=== PATIENT | male | born 1955 | race Caucasian/White ===

== ENCOUNTER 2017-07-26 04:07 | Inpatient (IN) | payer OTHER ==
[~2017-07-26] VITALS: Ht 165.1 cm; Wt 77.1 kg
--- NOTE | ~2017-07-26 | CR72 ---
[facility] A Service of [facility] & [facility] RADIOLOGY TEXT RESULTS PATIENT: JUAN DIEGO CLARK LOCATION: [facility] 228-01 : 53 UNIT #: [id number] AGE: [address]: Rajani Mathew MD SEX: M ORDER DR: [id number] [facility] [address]. [place], [place] [address] [id number] MR#: [id number] Acc #: [id number] NAME: JUAN DIEGO CLARK : 1955 SEX: M STUDY DATE/TIME: 07/26/2017 5:27 [facility] [address] STUDY DESCRIPTION: CR Chest Single View Portable Attending Physician: Rajani Mathew M.D. Ordering Physician: Ziyad Jeff Aprn Primary Care Physician: Primitivo RooneyAWilfredo MEDICAL IMAGING REPORT This report is preliminary unless electronic signature is present EXAM Portable chest. INDICATIONS Fever, shortness of air today. PROCEDURE Frontal view chest. COMPARISON 01/03/2017. FINDINGS Heart size is within normal limits. There is ill-defined opacity in right upper lobe. No pleural fluid or pneumothorax. IMPRESSION Ill-defined opacity in the right upper lobe, keeping with pneumonia. Dictated by... Chucky Lazo M.D. THIS IS AN ELECTRONICALLY VERIFIED REPORT Chucky Lazo M.D. at 07/30/2017 8:57 AM EED/gz TD: 07/26/2017 08:50 JOB #: [id number] MEDICAL IMAGING REPORT Page 1 of 1 COPY
--- NOTE | ~2017-07-26 | HP ---
Unit #: [id number] #: [id number] Patient: JUAN DIEGO CLARK [id number] [address] [place], [place] [address] [id number] I MR#: [id number] NAME: JUAN DIEGO CLARK ROOM: 228 Age: 61 Sex: M Admission Date: 07/26/2017 : 1955 Attending Physician: Rajani Mathew M.D. Primary Care Physician: Garrett Rooney HISTORY AND PHYSICAL CHIEF COMPLAINT Weakness and cough and fever. HISTORY OF PRESENT ILLNESS A 61 year old with history of rheumatoid arthritis admitted because of fever and weakness. According to him it started one week prior to the admission. He had generalized weakness with associated fever. No nausea, no vomiting, has cough and mild shortness of breath, no abdominal pain, no diarrhea, no skin rash, no weakness, numbness, tingling, no dizziness, no syncope. PAST MEDICAL HISTORY History of rheumatoid arthritis. PAST SURGICAL HISTORY 1. Appendectomy. 2. Vasectomy. 3. Carpal tunnel surgery on his left wrist. SOCIAL HISTORY Smokes one pack of cigarettes per day, occasional alcohol, no drugs. FAMILY HISTORY Negative for any coronary artery disease. ALLERGIES None. HOME MEDICATIONS 1. Humira Pen 40 mg subcu every other week. 2. Methotrexate 2.5 mg p.o. weekly. REVIEW OF SYSTEMS No headache. No visual changes. No leg swelling. No skin rash. Reviewed 12-point system with him which are negative except as in HPI. PHYSICAL EXAMINATION VITAL SIGNS: Temperature 102.6. Pulse 103. Respiration 15. Blood pressure 119/67. GENERAL EXAMINATION: 61 year old lying on bed, alert, oriented x3. HEENT: Dry mucosa present. Pupils equally react to light and accommodation. LUNGS: Clear to auscultation. No crackles. No rhonchi. HEART: S1, S2 heard. No murmurs. Unit #: [id number] #: [id number] Patient: JUAN DIEGO CLARK ABDOMEN: Soft, nontender, bowel sounds are present. EXTREMITIES: No pedal edema. SKIN: No rash. NEUROLOGICAL: No focal neurological deficits. DIAGNOSTIC STUDIES LABORATORY: Lactic acid 1.0, second lactic acid 1.5. Troponins negative. Sodium 132, potassium 3.6, creatinine 1.3, albumin 3.4, WBC 14.9, hemoglobin 13.3, platelets 180. IMAGING: Chest x-ray shows right upper lobe opacity. ASSESSMENT AND PLAN 61 year old admitted because of fever and weakness. 1. Septic shock with severe sepsis from pneumonia right upper lobe: Patient was started on IV fluids and blood cultures drawn. CBC and lactic acid drawn. Antibiotics has been started. Continue with antibiotics and wait for blood cultures. Currently patient capillary refill is greater than 2 seconds. He does not have any cyanosis. Peripheral extremity shows warm and dry. His lungs are clear, no crackles. Heart S1, S2 heard, regular rhythm, no murmurs. 2. Rheumatoid arthritis: Hold off on his methotrexate and Humira. 3. GI prophylaxis with Protonix 40 p.o. daily. 4. DVT prophylaxis with Lovenox 40 subcu daily. Dictated by Amanda Pacheco/viki TD: 07/26/2017 22:53 JOB #: [id number] HISTORY AND PHYSICAL Page 1 of 1 X Rajani Mathew MD HISTORY AND PHYSICAL
--- NOTE | ~2017-07-26 | DS ---
Unit #: [id number] #: [id number] Patient: JUAN DIEGO CLARK [id number] [facility]. [place], [place] [address] [id number] I MR#: [id number] NAME: JUAN DIEGO CLARK ROOM: 228 Age: 61 Sex: M Admission Date: 07/26/2017 : 1955 Discharge Date: 07/27/2017 Attending Physician: Rajani Mathew M.D. Primary Care Physician: Primitivo RooneyAWilfredo DISCHARGE SUMMARY FINAL DIAGNOSIS Pneumonia and possible sepsis. SECONDARY DIAGNOSIS Rheumatoid arthritis on Enbrel. HOSPITAL COURSE Jhpqt-rvbie-smgn-old gentleman who basically is on Humira and methotrexate for rheumatoid arthritis presents with fever. Chest x-ray showed a right upper lobe opacity. He was treated for right upper lobe pneumonia. He had a temperature of 102.6 on admission, and he has been afebrile for the last twenty-four hours. He is not hypoxic at this time, and he has been evaluated and deemed stable for discharge. He was started on IV Rocephin and Zithromax on admission. MEDICATIONS ON DISCHARGE Include: 1. Methotrexate and Humira per home dose 2. Zithromax 500 mg p.o. daily for five days 3. Ceftin 250 mg p.o. b.i.d. for seven days He is scheduled to follow up with primary care physician in the next 3 to 5 days. Time spent coordinating discharge was about twenty-six minutes. Dictated by... Amanda Sagastume/dany TD: 07/28/2017 08:31 JOB #: [id number] Unit #: [id number] #: [id number] Patient: JUAN DIEGO CLARK DISCHARGE SUMMARY Page 1 of 1 X Anson Branham MD X DISCHARGE SUMMARY
--- NOTE | ~2017-07-26 | EKG ---
PATIENT: JUAN DIEGO CLARK UNIT #: [id number] Ventricular Rate: 90 BPM Atrial Rate: 90 BPM P-R Interval: 150 ms QRS Duration: 82 ms Q-T Interval: 340 ms QTC Calculation(Bezet): 415 ms P [place]: 63 degrees Calculated R [place]: 41 degrees Calculated T [place]: 47 degrees Diagnosis Line: Normal sinus rhythm Diagnosis Line: Normal ECG Diagnosis Line: No previous ECGs available Diagnosis Line: Confirmed by ANEESH BINGHAM MD ([id number]) on Diagnosis Line: 07/26/2017 10:54:15 AM INTERPRETING MD: ZACHERY WIGGINS
[~2017-07-26 04:07] MED LIST: FOSAMAX PO; WELLBUTRIN PO; [UNRECOGNIZED DRUG - OTHER] PO
[2017-07-26 05:25] LABS: BASOPHIL# 0.1 X10e3 (0-0.3); BASOPHIL% 0.4 % (0-2.5); HEMOGLOBIN 13.3 gm/dL (13.0-16.0); LYMPHOCYTE# 0.8 X10e3 (1.0-3.5); LYMPHOCYTE% 5.7 % (17.0-45.0); MEAN CORPUSCULAR HEMOGLOBIN 31.1 PG (28-34); MEAN CORPUSCULAR HGB CONC 33.4 g/dL (30-36); MEAN PLATELET VOLUME 9.2 FL (6.5-11.5); MONOCYTE# 1.8 X10e3 (0-1.0); MONOCYTE% 12.3 % (3.0-12.0); NEUTROPHIL# 12.1 X10e3 (1.5-7.1); NEUTROPHIL% 81.6 % (40-75); PLATELET COUNT 180 X10e3 (140-420); RED CELL DISTRIBUTION WIDTH 13.9 % (11.0-15.5); WHITE BLOOD COUNT 14.9 X10e3 (4.0-10.5)
[2017-07-26 05:36] LABS: DIFF IND NO
[2017-07-26 06:09] LABS: ALBUMIN SERUM 3.4 g/dL (3.5-5.0); BILIRUBIN, DIRECT 0.4 mg/dL (0.0-0.2); BILIRUBIN,TOTAL 1.4 mg/dL (0.2-2.0); BUN/CREATININE RATIO 12.3; CREATININE SERUM 1.3 mg/dL (0.6-1.4); GLOM FILT RATE Estimated 58.1 mL/min (>60); POTASSIUM 3.6 mmol/L (3.5-5.1); PROTEIN TOTAL SERUM 6.5 g/dL (6.0-8.3)
[2017-07-26 06:27] LABS: POC - CKMB <1.0 ng/mL (0.0-7.9); POC - TROPONIN <0.05 ng/mL (<=0.05)
[2017-07-26] MEDS ORDERED: METHOTREXATE2.5 MG PO (10:20)
[2017-07-26] MEDS ORDERED: HUMIRA PEN40 MG/0.8 SUBQ (10:20)
[2017-07-27 06:26] LABS: HEMATOCRIT 38.3 % (38.0-50.0); MEAN CELL VOLUME 94.2 FL (83-96); MEAN PLATELET VOLUME 8.7 FL (6.5-11.5); RED BLOOD COUNT 4.07 X10e (3.90-5.60); RED CELL DISTRIBUTION WIDTH 14.1 % (11.0-15.5)
[2017-07-27 07:00] LABS: ALBUMIN SERUM 2.7 g/dL (3.5-5.0); BILIRUBIN,TOTAL 0.8 mg/dL (0.2-2.0); CALCIUM SERUM 7.9 mg/dL (8.4-10.2); CREATININE SERUM 1.1 mg/dL (0.6-1.4); GLOM FILT RATE Estimated 71.1 mL/min (>60); POTASSIUM 4.2 mmol/L (3.5-5.1); PROTEIN TOTAL SERUM 5.6 g/dL (6.0-8.3)
[2017-07-27] MEDS ORDERED: ZITHROMAX500 MG PO (15:31)
[2017-07-27] MEDS ORDERED: 8 HOUR650 MG PO (15:31)
[2017-07-27] MEDS ORDERED: CEFTIN PO (15:31)
== END 2017-07-27 15:58 | disposition home or self-care (01) | DRG 871 ==
LOC: CED 04:07 → CEDOF 06:30 → CED 06:53 → CEDOF 06:53 → C2A 09:50
PROVIDERS: Internal Medicine; Nurse Practitioner Family
DX: A41.9 Sepsis, unspecified organism (principal); R65.21 Severe sepsis with septic shock; J18.9 Pneumonia, unspecified organism; M06.9 Rheumatoid arthritis, unspecified; F17.210 Nicotine dependence, cigarettes, uncomplicated
CPT/HCPCS: 36415; 71010; 80048; 80053; 80076; 82553; 83605; 84484; 85025; 85027; 87040; 93005; 96361; 96365; 99285; J0456; J0696; J1650